=== PATIENT | female | born 2000 | race Caucasian/White ===

== ENCOUNTER 2025-09-07 06:49 | Emergency (ER) | payer BC, SELFPAY ==
[2025-09-07 06:53] VITALS: BP 154/100
--- NOTE | 2025-09-07 07:26 | ED.GENMED ---
History of Present Illness
General
Chief Complaint: Abdominal Pain
Source: patient
Exam Limitations: none
Time Seen by Provider: 09/07/25 07:01
History of Present Illness
History of Present Illness:
25yoF with no significant past medical history presenting for evaluation of abdominal pain. Patient reports intermittent pain in her epigastric region for the past 1.5 months which she describes as a 'upset stomach.' About 3 days ago, she
developed nausea, vomiting, and diarrhea. She denies any suspicious food intake or inciting incident. She was seen at urgent care yesterday and was diagnosed with gastroenteritis. She was given a prescription for Zofran which she has taken
without any relief. She has vomited about 4-5 times in the past 24 hours. Diarrhea has since resolved. She currently describes her pain as a cramping sensation in her upper abdomen. Pain seems to be worse at nighttime and is sometimes worse
after eating. She denies any fevers, dysuria, vaginal bleeding. Last menstrual period was about 1 month ago. No previous abdominal surgeries.
Past History
Past History
ED Past Medical History: None
Social History
Personal: Single
Employment: Employed
Phy Exam
General Physical Exam
General Presentation: well appearing and no apparent distress
General Skin: warm and dry
General Habitus: normal
General Mental: alert
ENT Exam
ENT Exam: normocephalic
Pulmonary Exam
Pulmonary Exam: no respiratory distress
Gastrointestinal Exam
Gastrointestinal Exam: soft, non distended and other (+Tenderness in epigastrium. Abdomen soft, nontender. No rebound or guarding.)
Neurological Exam
Neurological Exam: alert
[place] Coma Scale
Eye Opening: Spontaneous
Verbal Response: Oriented
Motor Response: Obeys Commands
GCS Total Score: 15
Skin Exam
Skin Exam: normal color and warm/dry
Psychiatric Exam
Psychiatric Exam: normal mood/affect
Course
Orders/Labs/Results
Orders:
Orders
09/07/25 07:12
Test Result ONCE
09/07/25 07:22
Complete Blood Count/With Diff Urgent
Comprehensive Metabolic Panel Urgent
HCG, Serum Qualitative Screen Urgent
Lipase Urgent
09/07/25 07:25
0.9% Sodium Chloride 1000 ml [Nss] 1,000 ml IV BOLUS
Famotidine [Pepcid] 20 mg IV NOW STA
Ketorolac [Toradol] 15 mg IV NOW STA
Ondansetron Injectable [Zofran] 4 mg IV NOW STA
US Abdomen Complete/Upper Urgent
Comment:
Reason For Exam: epigastric pain
09/07/25 08:57
Electrocardiogram (*1) Urgent
Reason for Study: QTc Monitoring
EKG- Treatment ONCE
09/07/25 09:03
Haloperidol Lactate [Haldol] 5 mg IM NOW STA
09/07/25 10:[address] Non Medication Order As Directed
Physician Order: PO challenge
Above order entered?: Yes
Abnormal Lab Results
09/07/25
07:22
Chloride 110 H mmol/L
(98-107)
Carbon Dioxide 21 L mmol/L
(22-30)
Glucose 106 H mg/dl
(70-99)
09/07/25 07:22
09/07/25 07:22
Vital Signs
Initial and Last Documented VS:
Initial Vital Signs
Temp Pulse Resp BP Pulse Ox
98.0 F 73 22 154/100 97
09/07/25 06:53 09/07/25 06:53 09/07/25 06:53 09/07/25 06:53 09/07/25 06:53
Last Documented Vital Signs
Temp Pulse Resp BP Pulse Ox
98.0 F 71 15 109/62 100
09/07/25 06:53 09/07/25 11:15 09/07/25 11:15 09/07/25 10:00 09/07/25 10:15
MDM/Problems Addressed
Differential Diagnosis Includes:
25yoF here with vomiting x 3 days. Also c/o epigastric pain x 1.5 months. She is hypertensive in triage with otherwise stable vitals. No signs of peritonitis on abdominal exam. Differential diagnosis includes: Gastritis, PUD, pancreatitis, biliary
colic, gastroenteritis, dehydration
Initial ED plan: Check abdominal labs, hCG, and upper abdominal ultrasound. IV Zofran, Pepcid, Toradol, and fluid bolus for symptoms.
*Pulse Oximetry
SaO2: 97
Oxygen Mode of Delivery: Room air
Patient hypoxic: no
*Critical Care Note
Total Time (30-74mins, 75-104mins- exclusive of procedures): Not Applicable
Update Note
Update Note:
Labs unremarkable including normal white count, renal function, LFTs, and lipase. Upper abdominal ultrasound is negative for acute findings. Patient with persistent vomiting after IV Zofran. On reassessment, the room smells of marijuana. Upon
further questioning, patient does admit to using marijuana daily. IM Haldol subsequently ordered which provided relief. She reports continued nausea although was able to tolerate PO challenge and has not had any further vomiting. Patient now
requesting discharge and states she is anxious to go home. Advised marijuana cessation and prescription provided for ODT Zofran. Advised f/u with PCP and gastroenterology. ED return precautions reviewed.
ED Attending Note
-
Portions of this chart may have been created with voice recognition software.� Occasional wrong word or��sound alike� substitutions may have occurred due to the inherent limitations of voice recognition software.
Discharge Plan
Departure
Patient Disposition: Home (Routine Discharge)
Date of Disposition: 09/07/25
Time of Disposition: 11:41
Patient with high blood pressure during this ER visit?: No
Discharge Problem:
Nausea and vomiting, Epigastric pain
Instructions: Nausea and Vomiting, Adult (DC)
Prescriptions:
New
ondansetron 4 mg tablet,disintegrating
4 mg PO Q6H PRN (Reason: nausea and vomiting) Qty: 20 0RF
No Action
No Current Medications
ondansetron HCl 4 MG tablet
4 mg PO Q8HPRN PRN (Reason: for vomiting) Qty: 14 0RF
Referrals:
[facility] [Provider Group]
Qasim Munoz MD [Active, Gastroenterology]
UNKNOWN - PT DOES,NOT KNOW [Family Provider]
Activity Restrictions/Additional Instructions:
Take Zofran as needed for nausea. Continue eating a bland diet. Stop smoking marijuana.
Please follow-up with a family doctor and gastroenterology. Return to the ER with any new or worsening symptoms or if you are unable to keep down liquids.
Interventions
Interventions:
*Risk Screen - Suicide Last Done: 09/07/25 06:53
*General Assessment Last Done: 09/07/25 07:11
*Neglect/Abuse Screening Last Done: 09/07/25 07:11
*ED- Fall Risk Assessment Last Done: 09/07/25 07:11
*ED COVID-19 Vaccine History Last Done: 09/07/25 07:11
*ED Influenza Vaccine History Last Done: 09/07/25 07:11
*Nursing Disposition Last Done: 09/07/25 12:29
JG-Sdarqv-Lkatzoarqu Assessment Last Done: 09/07/25 07:11
Discharge Date and Time
Discharge Date/Time: 09/07/25 12:30
Print Language: FRENCH
[2025-09-07 07:30] LABS: Hematocrit 42.7 % (37.0-47.0); Hemoglobin 14.1 g/dL (12.0-16.0); Mean Corp Hgb Conc. 33.0 g/dL (33.0-37.0); Mean Corpuscular Volume 85.6 fL (81.0-99.0); Nucleated Red Blood Cells % 0 %; Platelet Count 276 10^3/uL (130-400); Red Cell Dist. Width 13.1 % (11.5-14.5)
[2025-09-07] MEDS: ZOFRAN 4 MG IV (07:32)
[2025-09-07] MEDS: TORADOL 15 MG IV (07:32)
[2025-09-07] MEDS: NSS 1000 IV (07:32)
[2025-09-07] MEDS: PEPCID 20 MG IV (07:32)
[2025-09-07 07:49] LABS: HCG, Serum Qualitative Screen Negative
[2025-09-07 07:53] LABS: ALT (SGPT) 13 U/L (0-35); AST (SGOT) 17 U/L (14-36); Albumin 4.5 g/dl (3.5-5.0); Alkaline Phosphatase 64 U/L (38-126); Blood Urea Nitrogen 7 mg/dl (7-17); Calcium 9.6 mg/dl (8.4-10.2); Carbon Dioxide 21 mmol/L (22-30); Chloride 110 mmol/L (98-107); Glucose 106 mg/dl (70-99); Lipase 38 U/L (23-300); Potassium 4.1 mmol/L (3.5-5.1); Sodium 135 mmol/L (135-145); Total Protein 7.6 g/dl (6.3-8.2); eGFR > 60.00
[2025-09-07] MEDS: HALDOL 5 MG IM (09:13)
[2025-09-07 09:16] VITALS: BP 123/76
[2025-09-07 10:00] VITALS: BP 109/62
== END 2025-09-07 12:30 | disposition home or self-care (01) ==
LOC: EMR 06:49
PROVIDERS: Physician Assistant; EMERGENCY PHYSICIAN Emergency Medicine
DX: R11.2 Nausea with vomiting, unspecified (principal); R10.13 Epigastric pain; R19.7 Diarrhea, unspecified; K52.9 Noninfective gastroenteritis and colitis, unspecified; Z91.018 Allergy to other foods
CPT/HCPCS: 99284; 96374; 96375 ×2; 96361; 96372; 76700; 80053; 83690; 84703; 85025; 93005

== ENCOUNTER → 2025-09-24 14:37 | Outpatient (REF) | payer BC, SELFPAY | LOC: RAD 14:37 | PROVIDERS: ATTENDING PHYSICIAN Internal Medicine | DX: R11.14 Bilious vomiting (principal); R63.4 Abnormal weight loss | CPT/HCPCS: 74019 ==

== ENCOUNTER → 2025-10-07 06:57 | Outpatient (REF) | payer BC, SELFPAY | LOC: RAD 06:57 | PROVIDERS: ATTENDING PHYSICIAN Internal Medicine; FAMILY PHYSICIAN Internal Medicine | DX: R11.14 Bilious vomiting (principal); R10.13 Epigastric pain | CPT/HCPCS: 74177; Q9967 ==